=== PATIENT | female | born 1990 | race American Indian/Alaskan Native ===

== ENCOUNTER 2016-09-11 11:57 | Emergency (ER) | payer SELFPAY ==
[2016-09-11] MEDS ORDERED: TORADOL IM ONE (14:24)
[2016-09-11] MEDS ORDERED: DECADRON IM ONE (14:24)
[2016-09-11] MEDS ORDERED: CLEOCIN IM ONE (15:33)
--- NOTE | 2016-09-11 15:54 | Emergency Department Report ---
ED ENT HPI - General Chief complaint: Sore Throat Stated complaint: SORE THROAT Time Seen by Provider: 09/11/16 14:17 Source: patient Mode of arrival: Ambulatory Limitations: No Limitations - History of Present Illness Initial comments: Patient is a 26-year-old female who presents due to sore throat times x 4 days. Patient states that she has pain with swallowing. Patient denies any fever or chills. Patient denies any abdominal pain, nausea or vomiting. patient c/o of left neck pain. MD complaint: sore throat Onset/Timin -: days(s) Location: throat Severity: severe Severity scale (0 -10): 10 Quality: aching Consistency: constant Improves with: none Worsens with: swallowing Associated Symptoms: sore throat. denies: fever, cough, gum swelling, toothache , pain with swallowing, tinnitus, hearing loss, discharge from ear, rhinorrhea - Related Data Previous Rx's Medication Instructions Recorded Last Taken Type Clindamycin [Clindamycin CAP] 450 mg PO Q6HR #120 capsule 09/11/16 Unknown Rx Ibuprofen [Motrin 800 MG tab] 800 mg PO Q8HR PRN #30 tablet 09/11/16 Unknown Rx Prednisone [predniSONE 10 mg 10 mg PO .TAPER #1 tab.ds.pk 09/11/16 Unknown Rx (6-Day Pack, 21 Tabs)] Allergies Allergy/AdvReac Type Severity Reaction Status Date / Time No Known Allergies Allergy Unverified 09/11/16 12:40 ED Dental HPI - General Chief complaint: Sore Throat Stated complaint: SORE THROAT Time Seen by Provider: 09/11/16 14:17 Source: patient Mode of arrival: Ambulatory Limitations: No Limitations - Related Data Previous Rx's Medication Instructions Recorded Last Taken Type Clindamycin [Clindamycin CAP] 450 mg PO Q6HR #120 capsule 09/11/16 Unknown Rx Ibuprofen [Motrin 800 MG tab] 800 mg PO Q8HR PRN #30 tablet 09/11/16 Unknown Rx Prednisone [predniSONE 10 mg 10 mg PO .TAPER #1 tab.ds.pk 09/11/16 Unknown Rx (6-Day Pack, 21 Tabs)] Allergies Allergy/AdvReac Type Severity Reaction Status Date / Time No Known Allergies Allergy Unverified 09/11/16 12:40 ED Review of Systems ROS: Stated complaint: SORE THROAT Other details as noted in HPI Comment: All other systems reviewed and negative Constitutional: no symptoms reported. denies: chills, diaphoresis, fever, malaise, weakness Eyes: denies: eye pain, eye discharge, vision change ENT: congestion (nasal congestion). denies: ear pain, throat pain, dental pain , hearing loss, epistaxis Respiratory: no symptoms reported. denies: cough, orthopnea, shortness of breath, SOB with exertion, SOB at rest, stridor Cardiovascular: denies: as per HPI, chest pain, palpitations, dyspnea on exertion, orthopnea, edema, syncope, paroxysmal nocturnal dyspnea Endocrine: no symptoms reported Gastrointestinal: denies: abdominal pain, nausea, vomiting, diarrhea, constipation, hematemesis, melena, hematochezia Genitourinary: denies: urgency, dysuria, frequency, hematuria, discharge, abnormal menses, dyspareunia Musculoskeletal: denies: back pain, joint swelling, arthralgia Skin: denies: rash ED Past Medical Hx - Past Medical History Previous Medical History?: No - Surgical History Past Surgical History?: No - Medications Home Medications: Home Medications Medication Instructions Recorded Confirmed Last Taken Type Clindamycin [Clindamycin CAP] 450 mg PO Q6HR #120 capsule 09/11/16 Unknown Rx Ibuprofen [Motrin 800 MG tab] 800 mg PO Q8HR PRN #30 tablet 09/11/16 Unknown Rx Prednisone [predniSONE 10 mg 10 mg PO .TAPER #1 tab.ds.pk 09/11/16 Unknown Rx (6-Day Pack, 21 Tabs)] ED Physical Exam - General Limitations: No Limitations General appearance: alert, in no apparent distress - Head Head exam: Present: atraumatic, normocephalic, normal inspection - Eye Eye exam: Present: normal appearance, PERRL, EOMI Pupils: Present: normal accommodation - ENT ENT exam: Present: normal exam, mucous membranes moist, TM's normal bilaterally - Expanded ENT Exam Expanded Mouth exam: Present: normal external inspection. Absent: tongue normal, tongue elevation, laceration Throat exam: Positive: tonsillar erythema, tonsillomegaly, tonsillar exudate, other (no uvula deviation). Negative: R peritonsillar mass, L peritonsillar mass - Neck Neck exam: Present: normal inspection, full ROM, lymphadenopathy. Absent: tenderness, meningismus, thyromegaly - Respiratory Respiratory exam: Present: normal lung sounds bilaterally. Absent: respiratory distress, wheezes, rales, rhonchi, stridor, chest wall tenderness - Cardiovascular Cardiovascular Exam: Present: regular rate, normal rhythm, normal heart sounds. Absent: systolic murmur, diastolic murmur, rubs, gallop - GI/Abdominal GI/Abdominal exam: Present: soft, normal bowel sounds. Absent: distended, tenderness, guarding, rebound, rigid - Neurological Exam Neurological exam: Present: alert, oriented X3, normal gait - Psychiatric Psychiatric exam: Present: normal affect, normal mood - Skin Skin exam: Present: warm, dry, intact ED Course Vital Signs 09/11/16 09/11/16 12:41 15:55 Temperature 99.1 F 98.3 F Pulse Rate 95 H 88 Respiratory 16 20 Rate Blood Pressure 126/84 Blood Pressure 126/84 [Left] Blood Pressure 118/76 [Right] O2 Sat by Pulse 100 97 Oximetry ED Medical Decision Making - Medical Decision Making Patient was in no acute distress, patient had tonsillar erythema and tonsillomegaly, no uvula deviation, no peritonsillar abscess. No exudates. Patient had right. Tonsillar and submandibular lymphadenopathy. Rapid strep was positive. Patient was given Toradol IM, clindamycin IM and Decadron IM in the ER. Patient was discharge with prescription for clindamycin 450 mg every 6 hours for 10 days. Patient was discharged with prednisone tapering dose, and ibuprofen. Patient was given information on follow-up with ENT specialist. Patient was told to return to the ER if she cannot swallow pills or drink fluids. - Differential Diagnosis strep pharyngitis, tonsillitis, peritonsillar abscess Critical care attestation.: If time is entered above; I have spent that time in minutes in the direct care of this critically ill patient, excluding procedure time. ED Disposition Clinical Impression: Strep pharyngitis Disposition: DISCHARGED TO HOME OR SELFCARE Is pt being admited?: No Does the pt Need Aspirin: No Condition: Good Instructions: Strep Throat (ED) Additional Instructions: Take clindamycin 450 mg every 6 hours for 10 days, take ibuprofen 800 mg every 8 hours as needed for pain. Take prednisone tapering dose as prescribed. Follow up with the provided ENT specialist, return to the ER if he cannot swallow your clindamycin medication or if you cannot tolerate oral liquids. Prescriptions: Clindamycin [Clindamycin CAP] 450 mg PO Q6HR #120 capsule Ibuprofen [Motrin 800 MG tab] 800 mg PO Q8HR PRN #30 tablet PRN Reason: Pain Prednisone [predniSONE 10 mg (6-Day Pack, 21 Tabs)] 10 mg PO .TAPER #1 tab.ds.pk Referrals: PRIMARY CARE, [Primary Care Provider] - 3-5 Days UZAIR CADET MD [Staff Physician] - 3-5 Days Time of Disposition: 16:22
[2016-09-11 15:56] VITALS: BP 118/76
== END 2016-09-11 16:30 | disposition home or self-care (01) ==
LOC: ED 11:57
DX: J02.0 Streptococcal pharyngitis (principal)
CPT/HCPCS: 87430; 96372; 99282; J1100; J1885